=== PATIENT | female | born 1940 | race Caucasian/White ===

== ENCOUNTER 2022-10-18 10:26 | Observation (INO) ==
[2022-10-18] MEDS ORDERED: Iodixanol (CONTRAST) 320 MG/ML 100 ML SDV IV ONE (10:41)
[2022-10-18 10:47] LABS: ABS Eosinophils 0.1 10^3/uL (0.0-0.5); ABS Lymphocytes 0.8 10^3/uL (1.0-4.8); ABS Monocytes 0.5 10^3/uL (0.0-0.9); ABS Neutrophils 3.7 10^3/uL (1.5-7.6); ABS Nucleated RBC 0.01 10^3/ul; Eosinophil % 1.4 %; Hematocrit 38.4 % (35-45); Hemoglobin 13.1 g/dL (11.5-14.3); Lymphocyte % 15.9 %; Mean Corpuscular Hemoglobin 31.2 pg (27-33); Mean Corpuscular Hgb Conc 34.2 g/dL (31-36); Mean Corpuscular Volume 91.4 fL (80-97); Mean Platelet Volume 7.3 fL (7.5-11.2); Nucleated Red Blood Cells % 0.1 /100 WBC (0.0-0.4); Platelet Count 184 10^3/uL (150-450); Red Cell Distribution Width 14.3 % (12-17); White Blood Count 5.1 10^3/uL (3.8-11.8)
[2022-10-18 11:01] LABS: Activated Partial Thrombo Time 30.8 seconds (26.0-38.0); INR 1.12 (0.88-1.18)
[2022-10-18 11:03] LABS: Albumin 4.2 g/dL (3.2-5.2); Calcium 9.4 mg/dL (8.6-10.3); Potassium 4.4 mmol/L (3.5-5.0); Total Bilirubin 0.4 mg/dL (0.2-1.0)
[2022-10-18 11:09] LABS: Albumin/Globulin Ratio 1.6 (1-3); Creatinine, Serum 0.82 mg/dL (0.51-0.95); Globulin 2.7 g/dL (2-4); HDL Cholesterol 100.4 mg/dL; Total Protein 6.9 g/dL (6.4-8.9); eGFR CKD-EPI 70.9 (>60)
[2022-10-18] MEDS ORDERED: Labetalol IV 5 MG/ML 20 ml VIAL IV PUSH ONE ×4 (11:30→18:16)
[2022-10-18] MEDS: Enoxaparin 40 MG/0.4 ML SYR SUBCUT SCH (15:27)
[2022-10-18 15:37] LABS: Urine Appearance Cloudy; Urine Bilirubin Negative (Negative); Urine Blood Negative (Negative); Urine Color Yellow; Urine Glucose Negative (Negative); Urine Ketones Negative (Negative); Urine Nitrite Positive (Negative); Urine Protein Negative (Negative); Urine Specific Gravity 1.014 (1.002-1.030); Urine Urobilinogen Negative (Negative)
[2022-10-18 15:42] LABS: Urine Bacteria Absent (Absent); Urine Red Blood Cell Trace(0-2/hpf) (Absent); Urine Squamous Epithelial Cell Present (Absent); Urine White Blood Cell Absent (Absent)
[2022-10-19] MEDS ORDERED: Albuterol HFA INHALER 8 gm MDI INH PRN (06:44)
[2022-10-19] MEDS: Mometasone/Formoter 200/5 MDI INH SCH ×2 (09:35→19:57)
[2022-10-19] MEDS: Cholecalciferol (VIT D3) 1,000 unit TAB PO SCH (10:56)
[2022-10-19 12:37] LABS: TSH Ultra Thyroid Stim Horm 6.37 mcIU/mL (0.34-5.60)
[2022-10-19 12:41] LABS: Free T4 0.64 ng/dL (0.61-1.12)
[2022-10-19] MEDS: Enoxaparin 40 MG/0.4 ML SYR SUBCUT SCH (14:23)
[2022-10-20 06:25] VITALS: BP 151/82
[2022-10-20 07:08] LABS: Creatinine, Serum 0.8 mg/dL (0.51-0.95); eGFR CKD-EPI 73.1 (>60)
[2022-10-20] MEDS: Mometasone/Formoter 200/5 MDI INH SCH (07:22)
[2022-10-20] MEDS ORDERED: Polyethylene Glycol 3350 17 GM PACKET PO PRN (08:41)
[2022-10-20] MEDS: Cholecalciferol (VIT D3) 1,000 unit TAB PO SCH (09:41)
== END 2022-10-20 11:22 | disposition home or self-care (01) ==
LOC: EDHOLD 10:26 → ED 10:26 → SUATTDRO 13:33 → MEDTELE 10-19 00:49
PROVIDERS: ADMIT Internal Medicine; ATTEND Internal Medicine

== ENCOUNTER 2022-11-26 12:43 | Observation (INO) ==
[2022-11-26 14:12] LABS: ABS Lymphocytes 0.7 10^3/uL (1.0-4.8); ABS Monocytes 0.6 10^3/uL (0.0-0.9); ABS Neutrophils 4.9 10^3/uL (1.5-7.6); ABS Nucleated RBC 0.01 10^3/ul; Eosinophil % 0.1 %; Hematocrit 43.4 % (35-45); Hemoglobin 15.2 g/dL (11.5-14.3); Lymphocyte % 11.3 %; Mean Corpuscular Hemoglobin 31.7 pg (27-33); Mean Corpuscular Hgb Conc 34.9 g/dL (31-36); Mean Corpuscular Volume 90.8 fL (80-97); Mean Platelet Volume 7.5 fL (7.5-11.2); Nucleated Red Blood Cells % 0.1 /100 WBC (0.0-0.4); Platelet Count 189 10^3/uL (150-450); Red Blood Count 4.78 10^6/uL (3.63-4.92); Red Cell Distribution Width 14.1 % (12-17); White Blood Count 6.2 10^3/uL (3.8-11.8)
[2022-11-26 14:24] LABS: INR 1.15 (0.83-1.13)
[2022-11-26] MEDS ORDERED: NS 0.9% 1000 ml BAG 1,000 ML IV ONE (14:24)
[2022-11-26] MEDS ORDERED: Ondansetron 4 mg VIAL 2 MG/ML 2 ml VIAL IV ONE (14:25)
[2022-11-26 14:32] LABS: Albumin 4.3 g/dL (3.2-5.2); Albumin/Globulin Ratio 1.6 (1-3); Creatinine, Serum 0.78 mg/dL (0.51-0.95); Globulin 2.7 g/dL (2-4); Magnesium 1.8 mg/dL (1.9-2.7); Total Bilirubin 0.7 mg/dL (0.2-1.0); eGFR CKD-EPI 75.3 (>60)
[2022-11-26] MEDS ORDERED: KCL 20 MEQ/100 ML IVPREMIX 20 MEQ/100 ML BAG IV ONE (14:34)
[2022-11-26] MEDS ORDERED: Acetaminophen IV 1 GM/100ML 1,000 MG/100 ML BAG IV ONE (14:37)
[2022-11-26] MEDS ORDERED: Iohexol 350 (CONTRAST) 500 ML MDV IV ONE (14:44)
[2022-11-26 15:43] LABS: High Sensitivity Troponin 1 Hr 20 pg/mL (<15)
[2022-11-26] MEDS ORDERED: Labetalol IV 5 MG/ML 20 ml VIAL IV PUSH ONE ×3 (16:19→17:16)
[2022-11-26] MEDS ORDERED: cefTRIAXone 1 gm/50 mL D5W 1 GM/50 ML BAG IV ONE (17:15)
[2022-11-26 18:27] LABS: Urine Appearance Clear; Urine Bilirubin Negative (Negative); Urine Blood Negative (Negative); Urine Color Yellow; Urine Glucose Negative (Negative); Urine Ketones 2+ (Negative); Urine Nitrite Negative (Negative); Urine Protein 1+(30 mg/dL) (Negative); Urine Specific Gravity 1.032 (1.002-1.030); Urine Urobilinogen Negative (Negative)
[2022-11-26 18:35] LABS: Urine Bacteria Absent (Absent); Urine Red Blood Cell Trace(0-2/hpf) (Absent); Urine White Blood Cell Trace(0-5/hpf) (Absent)
[2022-11-26] MEDS ORDERED: Labetalol IV 5 MG/ML 20 ml VIAL IV PUSH PRN (19:07)
[2022-11-26] MEDS: Enoxaparin 40 MG/0.4 ML SYR SUBCUT SCH (20:54)
[2022-11-26] MEDS: Lactated Ringers 1000 ml BAG 1,000 ML IV SCH (20:54)
[2022-11-27 06:28] LABS: Hematocrit 40.6 % (35-45); Hemoglobin 14.5 g/dL (11.5-14.3); Mean Corpuscular Hemoglobin 32.1 pg (27-33); Mean Corpuscular Hgb Conc 35.6 g/dL (31-36); Mean Platelet Volume 7.7 fL (7.5-11.2); Platelet Count 174 10^3/uL (150-450); Red Blood Count 4.51 10^6/uL (3.63-4.92); Red Cell Distribution Width 14.3 % (12-17); White Blood Count 5.8 10^3/uL (3.8-11.8)
[2022-11-27 06:45] LABS: Calcium 8.7 mg/dL (8.6-10.3); Creatinine, Serum 0.7 mg/dL (0.51-0.95); Magnesium 1.8 mg/dL (1.9-2.7); Potassium 2.9 mmol/L (3.5-5.0); eGFR CKD-EPI 85.8 (>60)
[2022-11-27] MEDS ORDERED: KCL 20 MEQ/100 ML IVPREMIX 20 MEQ/100 ML BAG IV ONE (07:10)
[2022-11-27] MEDS ORDERED: Magnesium Sulfate IV 3 GM in NS 0.9% 100 ml BAG 100 ML IVPB ONE (07:11)
[2022-11-27] MEDS: Lactated Ringers 1000 ml BAG 1,000 ML IV SCH (08:52)
[2022-11-27] MEDS ORDERED: Potassium Chlor 20 meq TAB.ER PO ONE ×5 (09:34→19:00)
[2022-11-27] MEDS: CMC:Epleronone 25 mg TAB (NF) PO SCH (11:25)
[2022-11-27 13:50] LABS: Calcium 8.6 mg/dL (8.6-10.3); Creatinine, Serum 0.69 mg/dL (0.51-0.95); Magnesium 2.9 mg/dL (1.9-2.7); Potassium 3.3 mmol/L (3.5-5.0); eGFR CKD-EPI 86.1 (>60)
[2022-11-27] MEDS: Ondansetron 4 mg VIAL 2 MG/ML 2 ml VIAL IV PRN ×2 (16:14→20:19)
[2022-11-27] MEDS ORDERED: cefTRIAXone 1 gm/50 mL D5W 1 GM/50 ML BAG IV SCH (18:00)
[2022-11-27] MEDS: Enoxaparin 40 MG/0.4 ML SYR SUBCUT SCH (20:19)
[2022-11-28 06:53] LABS: ABS Basophils 0.1 10^3/uL (0.0-0.1); ABS Eosinophils 0.1 10^3/uL (0.0-0.5); ABS Lymphocytes 1.1 10^3/uL (1.0-4.8); ABS Monocytes 0.5 10^3/uL (0.0-0.9); ABS Neutrophils 3.8 10^3/uL (1.5-7.6); ABS Nucleated RBC 0.01 10^3/ul; Eosinophil % 1.7 %; Hemoglobin 14.4 g/dL (11.5-14.3); Lymphocyte % 19.4 %; Mean Corpuscular Hemoglobin 31.9 pg (27-33); Mean Corpuscular Hgb Conc 35.3 g/dL (31-36); Mean Corpuscular Volume 90.4 fL (80-97); Mean Platelet Volume 7.5 fL (7.5-11.2); Nucleated Red Blood Cells % 0.2 /100 WBC (0.0-0.4); Platelet Count 178 10^3/uL (150-450); Red Blood Count 4.53 10^6/uL (3.63-4.92); Red Cell Distribution Width 14.4 % (12-17); White Blood Count 5.5 10^3/uL (3.8-11.8)
[2022-11-28 07:07] LABS: Calcium 8.4 mg/dL (8.6-10.3); Creatinine, Serum 0.77 mg/dL (0.51-0.95); Potassium 4.4 mmol/L (3.5-5.0); eGFR CKD-EPI 76.5 (>60)
[2022-11-28] MEDS: CMC:Epleronone 25 mg TAB (NF) PO SCH (09:18)
[2022-11-28 10:38] VITALS: BP 140/88
== END 2022-11-28 13:00 | disposition home or self-care (01) ==
LOC: EDHOLD 12:43 → ED 12:43 → SUATTDRO 17:14 → MEDTELE 22:49
PROVIDERS: ADMIT Internal Medicine; ATTEND Hospitalist